=== PATIENT | female | born 1990 | race Caucasian/White ===

== ENCOUNTER 2019-02-12 08:54 | Emergency (ER) | payer OTHER ==
[2019-02-12 09:22] LABS: APPEARANCE,URINE CLOUDY; BILIRUBIN,URINE NEGATIVE (NEGATIVE); COLOR,URINE YELLOW; GLUCOSE, URINE NEGATIVE (NEGATIVE); KETONES,URINE NEGATIVE (NEGATIVE); LEUKOCYTE ESTERASE,URINE LARGE (NEGATIVE); NITRITE,URINE POSITIVE (NEGATIVE); PROTEIN,URINE NEGATIVE (NEGATIVE); UROBILINOGEN,URINE NEGATIVE mg/dL (<2.0)
--- NOTE | 2019-02-12 09:27 | ER Document Report ---
ED Medical Screen (RME) - General Chief Complaint: Abdominal Pain Stated Complaint: ABDOMINAL/BACK PAIN Time Seen by Provider: 02/12/19 09:22 Primary Care Provider: ANYI MENDOZA DPM [Primary Care Provider] - Follow up as needed Mode of Arrival: Ambulatory Information source: Patient TRAVEL OUTSIDE OF THE [place] IN LAST 30 DAYS: No - HPI Patient complains to provider of: abdo pain Notes: 02/12/19 09:25 Patient here with complaints of abdominal pain and bloating. Started yesterday. No nausea, vomiting, diarrhea. No fevers. No dysuria or hematuria. She is a prior tubal ligation. Exam No distress, nontoxic-appearing. Lungs clear and equal throughout. Heart sounds normal. No CVA tenderness. Mild diffuse tenderness to palpation on limited triage abdominal exam. Plan CBC, CMP, lipase, urine, urine . An initial examination was made on the patient as part of the triage process, and it was determined a more comprehensive evaluation was necessary. Initial labs were ordered and patient was transferred to another provider in the ED who assumed care and finished evaluation and plan. - Related Data Allergies/Adverse Reactions: blueberries Allergy (Uncoded 02/12/19 09:22) seafood Allergy (Uncoded 02/12/19 09:22) Past Medical History - Social History Chew tobacco use (# tins/day): No Frequency of alcohol use: Occasional Drug Abuse: None Renal/ Medical History: Denies: Hx Peritoneal Dialysis Psychiatric Medical History: Reports: Hx Depression Past Surgical History: Reports: Hx Breast Surgery - lift 2013, Hx Oral Surgery, Hx Tubal Ligation - Immunizations Immunizations up to date: Yes Hx Diphtheria, Pertussis, Tetanus Vaccination: Yes Physical Exam - Vital signs Vitals: Temp Pulse Resp BP Pulse Ox 98.1 F 103 H 16 112/63 100 02/12/19 09:01 02/12/19 09:01 02/12/19 09:01 02/12/19 09:01 02/12/19 09:01 Course - Vital Signs Vital signs: Temp Pulse Resp BP Pulse Ox 98.1 F 103 H 16 112/63 100 02/12/19 09:01 02/12/19 09:01 02/12/19 09:01 02/12/19 09:01 02/12/19 09:01 - Laboratory Laboratory results interpreted by me: 02/12/19 08:57 Urine Blood SMALL H Urine Nitrite POSITIVE H Ur Leukocyte Esterase LARGE H Doctor's Discharge - Discharge Referrals: ANYI MENDOZA, DPM [Primary Care Provider] - Follow up as needed
[2019-02-12 09:41] LABS: ABSOLUTE BASOPHILS # (AUTO) 0.1 10^3/uL (0.0-0.2); ABSOLUTE EOSINOPHILS # (AUTO) 0.2 10^3/uL (0.0-0.6); ABSOLUTE LYMPHOCYTES (AUTO) 1.8 10^3/uL (0.5-4.7); ABSOLUTE MONOCYTES (AUTO) 0.6 10^3/uL (0.1-1.4); ABSOLUTE NEUT (AUTO) 6.4 10^3/uL (1.7-8.2); BASOPHILS % (AUTO) 0.9 % (0-2); EOSINOPHILS % (AUTO) 2.3 % (0-6); HEMATOCRIT 38.2 % (36.0-47.0); LYMPHOCYTES % (AUTO) 19.6 % (13-45); MEAN CORPUSCULAR HEMOGLOBIN 32.3 pg (27.0-33.4); MEAN CORPUSCULAR VOLUME 95 fl (80-97); MONOCYTES % (AUTO) 6.3 % (3-13); PLATELET COUNT 253 10^3/uL (150-450); RED BLOOD COUNT 4.01 10^6/uL (3.72-5.28); RED CELL DISTRIBUTION WIDTH 12.8 % (11.5-14.0); SEGMENTED NEUTROPHILS % (AUTO) 70.9 % (42-78); TOTAL CELLS COUNTED % (AUTO) 100 %
[2019-02-12] MEDS ORDERED: CEFTRIAXONE INJ 1000 MG VIAL IM ONE (10:10)
[2019-02-12] MEDS ORDERED: LIDOCAINE 1% INJ-PF (10 MG/ML) 30 ML SDV NEB ONE (10:10)
[2019-02-12 10:12] LABS: ALANINE AMINOTRANSFERASE 24 U/L (9-52); ALBUMIN 3.5 g/dL (3.5-5.0); ALKALINE PHOSPHATASE 71 U/L (38-126); ANION GAP 11 (5-19); ASPARTATE AMINO TRANSFERASE 24 U/L (14-36); BILIRUBIN,DIRECT 0.2 mg/dL (0.0-0.4); BILIRUBIN,TOTAL 0.6 mg/dL (0.2-1.3); BLOOD UREA NITROGEN 7 mg/dL (7-20); CALCIUM 8.7 mg/dL (8.4-10.2); CARBON DIOXIDE 25 mmol/L (22-30); CHLORIDE 106 mmol/L (98-107); GLUCOSE 72 mg/dL (75-110); POTASSIUM 3.7 mmol/L (3.6-5.0); SODIUM 142.1 mmol/L (137-145); TOTAL PROTEIN 6.2 g/dL (6.3-8.2)
--- NOTE | 2019-02-12 10:15 | ER Document Report ---
HPI - HPI Time Seen by Provider: 02/12/19 09:22 Pain Level: 4 Notes: Patient is a 28-year-old female with no significant past medical history who presents emergency department complaining of right back pain and occasional bloating/discomfort to her lower abdomen that began over the last couple days. Patient states that she has had urinary infection similar to this presentation, but she usually just feels it in her back and does not have any burning, urgency, or frequency. Patient states that she is having normal bowel movements. She is eating and drinking without difficulty. No surgical history to her abdomen. Last menstrual period was 3 and half weeks ago. No other vaginal discharge, odor, or bleeding. She has no concern of STD or STI. Denies any headache, fever, URI, sore throat, chest pain, palpitations, syncope, cough, shortness of breath, wheeze, dyspnea, nausea/vomiting/diarrhea, urinary retention, dysuria, hematuria, loss of control of bowel or bladder, numbness/tingling, saddle anesthesia, muscle paralysis/weakness, or rash. - ROS Systems Reviewed and Negative: Yes All other systems reviewed and negative - REPRODUCTIVE Reproductive: DENIES: : - DERM Skin Color: Normal Past Medical History - General Information source: Patient - Social History Smoking Status: Former Smoker Chew tobacco use (# tins/day): No Frequency of alcohol use: Occasional Drug Abuse: None Family History: DM, Hypertension, Malignancy Patient has suicidal ideation: No Patient has homicidal ideation: No Renal/ Medical History: Denies: Hx Peritoneal Dialysis Psychiatric Medical History: Reports: Hx Depression Past Surgical History: Reports: Hx Breast Surgery - lift 2013, Hx Oral Surgery, Hx Tubal Ligation - Immunizations Immunizations up to date: Yes Hx Diphtheria, Pertussis, Tetanus Vaccination: Yes Vertical Provider Document - CONSTITUTIONAL Agree With Documented VS: Yes Notes: PHYSICAL EXAMINATION: GENERAL: Well-appearing, well-nourished and in no acute distress. LUNGS: Breath sounds clear to auscultation bilaterally and equal. No wheezes rales or rhonchi. HEART: Regular rate and rhythm without murmurs, rubs, gallops. ABDOMEN: Soft, nontender, nondistended abdomen. No guarding, no rebound. No masses appreciated. Normal bowel sounds present. + right CVA tenderness. Musculoskeletal: FROM to passive/active. Strength 5+/5. Extremities: No cyanosis, clubbing, or edema b/l. Peripheral pulses 2+. Capillary refill less than 3 seconds. NEUROLOGICAL: Normal speech, normal gait. PSYCH: Normal mood, normal affect. SKIN: Warm, Dry, normal turgor, no rashes or lesions noted. - INFECTION CONTROL TRAVEL OUTSIDE OF THE [place] IN LAST 30 DAYS: No Course - Re-evaluation Re-evalutation: 02/12/19 10:40 Patient is an afebrile, well-hydrated, 28-year-old female who presents to the emergency department with acute UTI, suspect early/mild pyelonephritis. Vitals are currently acceptable without significant tachycardia, tachypnea, or hypoxia. PE is otherwise unremarkable. Patient's abdomen is soft and nontender. She is nontoxic-appearing and is able to tolerate p.o. without difficulty. CBC, CMP acceptable. hCG negative. See urinalysis results. Urine culture is pending. Patient given Rocephin today. No further labs or imaging warranted at this time. Low suspicion/risk for acute appendicitis, bowel obstruction, acute cholecystitis, acute cholangitis, perforated diverticulitis, incarcerated hernia, pancreatitis, perforated ulcer, peritonitis, sepsis, pelvic inflammatory disease, ectopic , tubo-ovarian abscess, ovarian torsion, or other systemic emergent condition at this time. Patient is aware that her condition can change from initial presentation and she needs to monitor symptoms closely and seek medical attention if any acute changes. Rx for keflex. Conservative measures otherwise for symptoms. Recheck with your PCM in 2-3 days. Return to the ED with any worsening/concerning symptoms otherwise as reviewed in discharge. Patient is in agreement. - Vital Signs Vital signs: Temp Pulse Resp BP Pulse Ox 98.1 F 103 H 16 112/63 100 02/12/19 09:01 02/12/19 09:01 02/12/19 09:01 02/12/19 09:01 02/12/19 09:01 - Laboratory Result Diagrams: 02/12/19 09:30 02/12/19 09:30 Laboratory results interpreted by me: 02/12/19 08:57 Urine Blood SMALL H Urine Nitrite POSITIVE H Ur Leukocyte Esterase LARGE H Discharge - Discharge Clinical Impression: Acute UTI (urinary tract infection), Acute pyelonephritis Condition: Stable Disposition: HOME, SELF-CARE Instructions: Cephalexin ([facility]), Pyelonephritis ([facility]), Urinary Tract Infection ([facility]) Additional Instructions: Push fluids (i.e. water, cranberry juice) Proper hygenic technique Keep the skin clean Tylenol/ibuprofen as needed Take medications as directed F/u with your PCM in 3-5 days for a recheck Consider consult with a Urologist for ongoing/worsening symptoms. Return to the ED with any worsening symptoms and/or development of fever, headache, chest pain, palpitations, syncope, shortness of breath, trouble breathing, abdominal pain, n/v/d, blood in stool/urine, loss of control of bowel/bladder, urinary retention, or other worsening symptoms that are concerning to you. Prescriptions: Cephalexin Monohydrate [Keflex 500 mg Capsule] 500 mg PO TID #21 capsule Referrals: ANYI MENDOZA DPM [Primary Care Provider] - Follow up as needed
[2019-02-12 10:53] VITALS: BP 118/66
== END 2019-02-12 10:54 | disposition home or self-care (01) ==
LOC: ER 08:54
DX: N10 Acute pyelonephritis (principal); M54.9 Dorsalgia, unspecified; Z87.891 Personal history of nicotine dependence
CPT/HCPCS: 99284; 96372; 36415; 87086; 83690; 85025; 81025; 87088; 80053; 81001; 87186; J0696

== ENCOUNTER 2020-09-28 18:45 | Emergency (ER) | payer OTHER ==
[2020-09-28] MEDS ORDERED: ACETAMINOPHEN 325 MG TABLET PO ONE (18:53)
[2020-09-28] MEDS ORDERED: KETOROLAC TROMETHAMINE INJ/PF 30 MG/1 ML SDV IV ONE (18:53)
--- NOTE | 2020-09-28 18:54 | ER Document Report ---
ED Medical Screen (RME) - General Chief Complaint: Fever Stated Complaint: FEVER Time Seen by Provider: 09/28/20 18:49 Notes: HPI: 30-year-old female presenting with dysuria, pelvic pain, bilateral flank pain over the last 3 days with onset of fever today. Patient has history of urinary infections and pyelonephritis. She believes this is the same. No cough or cold symptoms PHYSICAL EXAMINATION: Mild tenderness across the suprapubic and pelvic region on palpation. She appears moderately uncomfortable. She is febrile. She has bilateral CVA tenderness worse on the right I have greeted and performed a rapid initial assessment of this patient. A comprehensive ED assessment and evaluation of the patient, analysis of test results and completion of medical decision making process will be conducted by an additional ED providers. Please note that clinical decision making for this patient was made during the 2019 pandemic of novel coronavirus which caused a significant strain on the healthcare system including at this particular facility. Criteria for admission discharge and level of care decisions as well as treatment decisions have necessarily changed TRAVEL OUTSIDE OF THE [place] IN LAST 30 DAYS: No - Related Data Allergies/Adverse Reactions: blueberries Allergy (Uncoded 02/12/19 09:22) seafood Allergy (Uncoded 02/12/19 09:22) Past Medical History Renal/ Medical History: Denies: Hx Peritoneal Dialysis Psychiatric Medical History: Reports: Hx Depression Past Surgical History: Reports: Hx Breast Surgery - lift 2013, Hx Oral Surgery, Hx Tubal Ligation - Immunizations Immunizations up to date: Yes Hx Diphtheria, Pertussis, Tetanus Vaccination: Yes Physical Exam - Vital signs Vitals: Temp Pulse Resp BP Pulse Ox 100.9 F H 100 18 107/63 99 09/28/20 18:51 09/28/20 18:51 09/28/20 18:51 09/28/20 18:51 09/28/20 18:51 Course - Vital Signs Vital signs: Temp Pulse Resp BP Pulse Ox 100.9 F H 100 18 107/63 99 09/28/20 18:51 09/28/20 18:51 09/28/20 18:51 09/28/20 18:51 09/28/20 18:51
[2020-09-28 19:49] LABS: ABSOLUTE EOSINOPHILS # (AUTO) 0.1 10^3/uL (0.0-0.6); ABSOLUTE MONOCYTES (AUTO) 0.7 10^3/uL (0.1-1.4); ABSOLUTE NEUT (AUTO) 6.7 10^3/uL (1.7-8.2); BASOPHILS % (AUTO) 0.3 % (0-2); EOSINOPHILS % (AUTO) 0.8 % (0-6); HEMATOCRIT 39.8 % (36.0-47.0); HEMOGLOBIN 13.9 g/dL (12.0-15.5); LYMPHOCYTES % (AUTO) 11.6 % (13-45); MEAN CORPUSCULAR HEMOGLOBIN 34.4 pg (27.0-33.4); MEAN CORPUSCULAR HGB CONC 34.9 g/dL (32.0-36.0); MEAN CORPUSCULAR VOLUME 99 fl (80-97); MONOCYTES % (AUTO) 8.1 % (3-13); PLATELET COUNT 210 10^3/uL (150-450); RED BLOOD COUNT 4.04 10^6/uL (3.72-5.28); RED CELL DISTRIBUTION WIDTH 12.8 % (11.5-14.0); SEGMENTED NEUTROPHILS % (AUTO) 79.2 % (42-78); TOTAL CELLS COUNTED % (AUTO) 100 %; WHITE BLOOD COUNT 8.5 10^3/uL (4.0-10.5)
[2020-09-28 19:54] LABS: APPEARANCE,URINE CLOUDY; BILIRUBIN,URINE NEGATIVE (NEGATIVE); COLOR,URINE YELLOW; GLUCOSE, URINE NEGATIVE (NEGATIVE); KETONES,URINE NEGATIVE (NEGATIVE); LEUKOCYTE ESTERASE,URINE LARGE (NEGATIVE); NITRITE,URINE NEGATIVE (NEGATIVE); PROTEIN,URINE NEGATIVE (NEGATIVE); URINE SPECIFIC GRAVITY 1.009
[2020-09-28 19:57] LABS: ALBUMIN 4.3 g/dL (3.5-5.0); ALKALINE PHOSPHATASE 78 U/L (38-126); ANION GAP 6 (5-19); ASPARTATE AMINO TRANSFERASE 21 U/L (14-36); BILIRUBIN,TOTAL 0.9 mg/dL (0.2-1.3); BLOOD UREA NITROGEN 11 mg/dL (7-20); CALCIUM 9.5 mg/dL (8.4-10.2); CARBON DIOXIDE 28 mmol/L (22-30); CHLORIDE 99 mmol/L (98-107); GLUCOSE 96 mg/dL (75-110); POTASSIUM 4.1 mmol/L (3.6-5.0); TOTAL PROTEIN 7.2 g/dL (6.3-8.2)
--- NOTE | 2020-09-28 23:25 | RADIOLOGY REPORT (SQ) ---
EXAM: CT ABD/PELVIS WITH IV ONLY CLINICAL INDICATION: 30-year-old female with suspected pyelonephritis. COMPARISON: None. EXAMINATION: CT of the abdomen and pelvis was performed following intravenous administration of contrast. Oral contrast was not administered. Multiplanar reformatted images were provided. This exam was performed according to our departmental dose optimization program which includes use of automated exposure control, adjustment of the mA and/or kV according to patient size and/or use of iterative reconstruction technique. FINDINGS: Chest: Evaluation through the lung bases reveals no focal opacity, pleural effusion or pneumothorax. Heart size is within normal limits. No pericardial effusion. Abdomen and pelvis: The RIGHT kidney reveals focal transcortical hypoattenuation within the inferior pole of the RIGHT kidney. There is focal perinephric stranding compatible with focal acute pyelonephritis. No organizing fluid collection is identified to suggest drainable abscess collection at this time. The appendix is incidentally noted coursing along the RIGHT paracolic gutter within the region of the perinephric inflammatory change, however is within normal limits of size and reveals central air lucency favoring inflammatory change secondary to pyelonephritis, unlikely to reflect appendicitis. Free fluid present within the dependent pelvis, a nonspecific finding which may be physiologic in a patient this age or reactive secondary to pyelonephritis. The liver, gallbladder, pancreas, spleen, LEFT kidney and bilateral adrenal glands are within normal limits. The vessels are patent and normal in caliber. No abdominopelvic lymph nodes are noted to be pathologically enlarged by CT measurement criteria. The bowel is within normal limits without abnormal bowel wall thickness or bowel dilation. No free air. No free abdominopelvic fluid collections. The appendix is within normal limits. The uterus and adnexa are within normal limits of a contrast-enhanced CT examination. Right-sided crenulated enhancement compatible with corpus luteum type cyst measuring 16 mm, (series 3, image 72). Prominent appearance of the left-sided parametrial vessels. The LEFT ovarian vein measures 9 mm. The possibility of pelvic congestion may be considered. The osseous structures are within normal limits. IMPRESSION: 1. Right-sided pyelonephritis as detailed above. 2. Possible left-sided pelvic congestion as detailed above. 3. Free fluid present within the dependent pelvis, a nonspecific finding which may be physiologic in a patient this age or reactive secondary to pyelonephritis. 4. 16 mm right-sided corpus luteum type cyst. Best practice guidelines recommend no follow-up evaluation of this time.
--- NOTE | 2020-09-29 00:59 | ER Document Report ---
ED General - General Chief Complaint: Flu Symptoms Stated Complaint: FEVER Time Seen by Provider: 09/28/20 18:49 Primary Care Provider: MORENITA KIRAN MD [Primary Care Provider] - Follow up as needed TRAVEL OUTSIDE OF THE [place] IN LAST 30 DAYS: No - HPI Notes: 30-year-old female presents with flank pain and dysuria x3 days, developed fever today. She states she has long history of UTI/pyelonephritis, states she has had 14 infections this year. She has no known antibiotic resistance to her knowledge. Complains of bilateral flank pain, though right side is worse. Pain feels typical of previous Lio infections. Radiates into her pelvis. She denies vaginal discharge. States that she was supposed to see urology given her frequent UTIs however she has not yet established. - Related Data Allergies/Adverse Reactions: blueberries Allergy (Uncoded 02/12/19 09:22) seafood Allergy (Uncoded 02/12/19 09:22) Home Medications: flexeril, adderall Past Medical History - General Information source: Patient - Social History Smoking Status: Current Every Day Smoker Family History: DM, Hypertension, Malignancy Renal/ Medical History: Denies: Hx Peritoneal Dialysis Psychiatric Medical History: Reports: Hx Depression Past Surgical History: Reports: Hx Breast Surgery - lift 2013, Hx Oral Surgery, Hx Tubal Ligation - Immunizations Immunizations up to date: Yes Hx Diphtheria, Pertussis, Tetanus Vaccination: Yes Review of Systems - Review of Systems Constitutional: Fever EENT: No symptoms reported Cardiovascular: No symptoms reported Respiratory: No symptoms reported Gastrointestinal: No symptoms reported Genitourinary: See HPI Female Genitourinary: No symptoms reported Musculoskeletal: No symptoms reported Skin: No symptoms reported Hematologic/Lymphatic: No symptoms reported Neurological/Psychological: No symptoms reported Physical Exam - Vital signs Vitals: Temp Pulse Resp BP Pulse Ox 100.9 F H 100 18 107/63 99 09/28/20 18:51 09/28/20 18:51 09/28/20 18:51 09/28/20 18:51 09/28/20 18:51 - General General appearance: Appears well, Alert In distress: None - HEENT Head: Normocephalic, Atraumatic Extraocular movements intact: Yes Pupils: PERRL - Respiratory Breath sounds: Normal - Cardiovascular Rhythm: Regular Heart sounds: Normal auscultation - Abdominal Tenderness: No: Guarding, Rebound - Back Back: CVA tenderness - Right - Extremities General upper extremity: Normal ROM General lower extremity: Normal ROM - Neurological Neuro grossly intact: Yes Cognition: Normal Orientation: AAOx4 - Psychological Associated symptoms: Normal affect - Skin Skin Temperature: Warm Course - Re-evaluation Re-evalutation: 30-year-old female here with 3 days of dysuria and bilateral flank pain, R>L, new fever today. On exam she is nontoxic-appearing, has some right CVA tenderness. She was initially febrile at [place] 100.9 which down trended. She is hemodynamically stable. She had CT abdomen done through the triage process which showed evidence of a right pyelonephritis, no appendicitis, urine +UTI, no leukocytosis or left shift. I reviewed a previous urine culture which shows E. coli with fairly good sensitivities. She received a dose of Rocephin and was prescribed Keflex as her previous culture showed susceptibility to cephalosporins. Patient was encouraged to follow-up with urology as planned. Return precautions given, stable time of discharge. - Vital Signs Vital signs: Temp Pulse Resp BP Pulse Ox 97.8 F 73 16 96/63 L 100 09/29/20 02:24 09/29/20 02:24 09/29/20 02:24 09/29/20 02:24 09/29/20 02:24 - Laboratory Results Result Diagrams: 09/28/20 19:15 09/28/20 19:15 Laboratory Results Interpreted: 09/28/20 09/28/20 09/28/20 19:15 19:15 19:15 MCV 99 H MCH 34.4 H Lymph % (Auto) 11.6 L Seg Neutrophils % 79.2 H Sodium 133.4 L Urine Blood SMALL H Urine Urobilinogen 2.0 H Ur Leukocyte Esterase LARGE H Critical Laboratory Results Reviewed: No Critical Results - Radiology Results Critical Radiology Results Reviewed: No Critical Results Discharge - Discharge Clinical Impression: Pyelonephritis Disposition: HOME, SELF-CARE Instructions: Pyelonephritis ([facility]) Additional Instructions: Begin course of Keflex. You will be called based on urine culture if antibio tics need to be changed. Please follow-up with urology as previously discussed. Return to the emergency department for any concerning worsening symptoms. Prescriptions: Cephalexin Monohydrate [Keflex 500 mg Capsule] 500 mg PO BID 10 Days #20 capsule Referrals: MORENITA KIRAN MD [Primary Care Provider] - Follow up as needed
[2020-09-29] MEDS ORDERED: CEFTRIAXONE 1 GM/D5W RTU 1 GM/50 ML RTUPB IV ONE (01:00)
[2020-09-29] MEDS ORDERED: RINGERS SOLUTION,LACTATED 1,000 ML IV ONE (01:01)
[2020-09-29 02:27] VITALS: BP 96/63
== END 2020-09-29 02:27 | disposition home or self-care (01) ==
LOC: ER 18:45
DX: N12 Tubulo-interstitial nephritis, not specified as acute or chronic (principal); R50.9 Fever, unspecified; R10.9 Unspecified abdominal pain; R30.0 Dysuria; F17.200 Nicotine dependence, unspecified, uncomplicated; Z87.440 Personal history of urinary (tract) infections
CPT/HCPCS: 99285; 96361; 96375; 96365; 36415; 87040; 87086; 84703; 85025; 87088; 80053; 81001; 87186; 74177; J1885; J7120; J0696